=== PATIENT | female | born 2000 | race Hispanic/Latino ===

== ENCOUNTER 2022-04-12 00:38 | Inpatient (IN) | payer OTHER ==
[2022-04-12 01:08] VITALS: BMI 33.8
[2022-04-12] MEDS ORDERED: hydrALAZINE 20 MG/ML VIAL SLOW IVP PRN ×3 (02:37→13:11)
[2022-04-12] MEDS ORDERED: HYDROcodone/Acetaminophen 5/325 mg Tablet PO PRN ×2 (03:52)
[2022-04-12] MEDS ORDERED: Lidocaine 1% (PF) 30 ML VIAL SC PRN (03:52)
[2022-04-12] MEDS ORDERED: Acetaminophen 500 MG TAB PO PRN (03:52)
[2022-04-12] MEDS ORDERED: Misoprostol 200 MCG TAB PR PRN (03:52)
[2022-04-12] MEDS ORDERED: Diphenoxylate HCl/Atropine Tablet PO PRN ×2 (03:52)
[2022-04-12] MEDS ORDERED: Promethazine HCl 25 MG/ML VIAL IM PRN (03:52)
[2022-04-12] MEDS ORDERED: Carboprost 250 MCG/ML AMP IM PRN (03:52)
[2022-04-12] MEDS ORDERED: Ibuprofen 800 MG TAB PO PRN (03:52)
[2022-04-12] MEDS ORDERED: Methylergonovine 0.2 MG/ML VIAL IM PRN (03:52)
[2022-04-12] MEDS ORDERED: Ondansetron PF 4 MG/2 ML Vial IVP PRN ×2 (03:52→13:11)
[2022-04-12] MEDS ORDERED: Lactated Ringer's 1,000 ML IV SCH (04:00)
[2022-04-12] MEDS ORDERED: NS w/ Oxytocin 30 units 500 ML IV SCH ×3 (04:00→13:11)
[2022-04-12 04:20] LABS: Hemoglobin 9.6 g/dL (12.0-15.5); Mean Corpuscular HGB CONC 33.7 g/dL (32.0-36.0); Mean Corpuscular Hemoglobin 25.9 pg (27.0-33.0); Mean Corpuscular Volume 76.8 fl (81.6-98.3); Mean Platelet Volume 11.5 fl (7.4-10.4); Platelet Count 178 10x3/uL (150-450); RBC Distribution Width 14.2 % (11.5-14.5); Red Blood Cell (RBC) Count 3.71 10x6/uL (3.90-5.03); White Blood Cell (WBC) Count 9.3 10x3/uL (3.5-10.5)
[2022-04-12 04:54] LABS: Syphilis Antibody Nonreactive (Nonreactive); Syphilis Antibody Index 0.05 S/CO (<1.00 Non-Reactive)
[2022-04-12 05:40] LABS: Hep B Surf Ag Non-Reactive S/CO (NonReactive)
[2022-04-12 05:54] LABS: HBSAg Index 0.28 S/CO (0-0.99)
[2022-04-12] MEDS ORDERED: Bupivacaine 0.25% HCL 30 ML VIAL ONE (07:00)
[2022-04-12] MEDS ORDERED: Bupivacaine PF 0.5% 30 ML VIAL ONE (08:00)
[2022-04-12] MEDS ORDERED: Fentanyl 2 mcg/Bup 0.1% Cadd 100 ML ONE (09:11)
[2022-04-12 09:14] LABS: SARS-CoV-2 NAA Rapid Test Not Detected (NotDetected)
[2022-04-12] MEDS: Misoprostol 100 MCG TAB VAG SCH (10:38)
[2022-04-12] MEDS ORDERED: Acetaminophen 325 MG TAB PO PRN (11:48)
[2022-04-12] MEDS ORDERED: Bisacodyl 10 MG SUPP PR PRN (13:11)
[2022-04-12] MEDS ORDERED: Milk Of Magnesia 30 ML UDCUP PO PRN (13:11)
[2022-04-12] MEDS ORDERED: Preparation H Ointment 28 GM TUBE PR PRN (13:11)
[2022-04-12] MEDS ORDERED: Lanolin Ointment 7 GM TUBE TOP PRN (13:11)
[2022-04-12] MEDS ORDERED: Benzocaine-Menthol 82.5 ML CAN TOP PRN (13:11)
[2022-04-12] MEDS ORDERED: diphenhydrAMINE 25 MG CAP PO PRN (13:11)
[2022-04-12] MEDS ORDERED: Boostrix 0.5 ML (Tdap) VIAL IM ONE (13:11)
[2022-04-12] MEDS: Ibuprofen 800 MG TAB PO SCH ×2 (15:12→21:10)
[2022-04-12] MEDS: Ferrous Sulfate 325 MG TAB PO SCH (16:34)
[2022-04-12] MEDS: Docusate 100 MG CAP PO SCH (21:10)
[2022-04-13 07:04] LABS: #Eosinphils 0.1 10x3/uL (0.0-0.5); #Monocytes 0.7 10x3/uL (0.0-1.1); #Neutrophils 7.3 10x3/uL (1.5-8.4); %Basophils 0.3 % (0.0-2.0); %Lymphocytes 21.5 % (18.0-47.0); %Monocytes 6.7 % (0.0-10.0); %Neutrophils 69.9 % (40.0-75.0); Hemoglobin 10.2 g/dL (12.0-15.5); Mean Corpuscular HGB CONC 34.3 g/dL (32.0-36.0); Mean Corpuscular Hemoglobin 26.7 pg (27.0-33.0); Mean Corpuscular Volume 77.7 fl (81.6-98.3); Mean Platelet Volume 12.1 fl (7.4-10.4); Platelet Count 162 10x3/uL (150-450); RBC Distribution Width 14.5 % (11.5-14.5); Red Blood Cell (RBC) Count 3.82 10x6/uL (3.90-5.03); White Blood Cell (WBC) Count 10.5 10x3/uL (3.5-10.5)
[2022-04-13] MEDS: Ibuprofen 800 MG TAB PO SCH (07:32)
[2022-04-13] MEDS: Misoprostol 100 MCG TAB VAG SCH (07:32)
[2022-04-13] MEDS: Ferrous Sulfate 325 MG TAB PO SCH (08:34)
[2022-04-13] MEDS: Docusate 100 MG CAP PO SCH (08:36)
[2022-04-13] MEDS ORDERED: Prenatal Vitamin 1 TAB PO SCH (09:00)
[2022-04-13 11:07] VITALS: BP 95/50; TEMP 98.2
== END 2022-04-13 14:40 | disposition home or self-care (01) | DRG 807 ==
LOC: CSHLD/OP 00:38 → CSHLD 03:03 → CSHPP 14:00
PROVIDERS: ADMIT Family Medicine; ATTEND Family Medicine
PROC: 10E0XZZ Delivery of Products of Conception, External Approach (ICD-10-PCS; principal; 2022-04-12)
DX: O99.344 Other mental disorders complicating childbirth (principal); Z37.0 Single live birth; F41.9 Anxiety disorder, unspecified; Z90.49 Acquired absence of other specified parts of digestive tract; Z20.822 Contact with and (suspected) exposure to COVID-19; Z3A.40 40 weeks gestation of pregnancy; Z79.899 Other long term (current) drug therapy; Z88.2 Allergy status to sulfonamides; D64.9 Anemia, unspecified; O99.02 Anemia complicating childbirth; O71.89 Other specified obstetric trauma; F31.9 Bipolar disorder, unspecified
CPT/HCPCS: 36415; 51702; 85025; 85027; 86780; 86850; 86900; 86901; 87340; 99285; J2590; S0020; U0002